=== PATIENT | male | born 1990 | race Caucasian/White ===

== ENCOUNTER 2017-07-21 11:32 | Inpatient (IN) | payer OTHER, MEDICARE, MEDICAID ==
[~2017-07-21] VITALS: Ht 182.9 cm; Wt 70.3 kg
[~2017-07-21 11:32] MED LIST: OLAN7.5T2 PO
[2017-07-21 12:04] LABS: BASOPHILS % (AUTO) 0.7 % (0.0-2.0); EOSINOPHILS % (AUTO) 0.9 % (1.0-6.0); HEMATOCRIT 39.7 % (41-53); HEMOGLOBIN 13.9 g/dL (13.5-17.5); LYMPHOCYTES # (AUTO) 1.5 K/uL (1.0-4.8); MEAN CORPUSCULAR HEMOGLOBIN 32.7 pg (26.0-34.0); MEAN CORPUSCULAR HGB CONC 34.9 G/dL (31.0-37.0); MEAN CORPUSCULAR VOLUME 94 fL (80-100); MONOCYTES # (AUTO) 0.9 K/uL (0.1-1.0); MONOCYTES % (AUTO) 10.5 % (2.0-9.0); NEUTROPHILS # (AUTO) 5.8 K/uL (1.8-7.7); NEUTROPHILS % (AUTO) 69.9 % (40.0-70.0); PLATELET COUNT (AUTO) 169 K/uL (150-450); RED BLOOD CELL COUNT(AUTO) 4.24 MIL/uL (4.50-5.90); RED CELL DISTRIBUTION WIDTH 13.5 % (11.5-14.5)
[2017-07-21 12:16] LABS: ANION GAP 9 mmol/L (8-16); CALCIUM, TOTAL 8.6 mg/dL (8.8-10.5); CARBON DIOXIDE 28 mmol/L (22-29); CHLORIDE 103 mmol/L (98-107); CREATININE 1.08 mg/dL (0.60-1.30); GLOMERULAR FILTR. RATE CALC > 60 mL/min (>60); GLUCOSE,RANDOM 112 mg/dL (70-110); POTASSIUM 3.4 mmol/L (3.5-5.1); SODIUM SERUM 140 mmol/L (136-145); UREA NITROGEN, BLOOD 19 mg/dL (7-18)
[2017-07-21 12:24] LABS: ALANINE AMINOTRANSFERASE 33 U/L (12-78); ALBUMIN 3.8 g/dL (3.4-5.0); ALKALINE PHOSPHATASE 67 U/L (46-116); ASPARTATE AMINOTRANSFERASE 30 U/L (15-37); TOTAL PROTEIN, SERUM 7.1 g/dL (6.4-8.2)
[2017-07-21] MEDS ORDERED: HALOPERIDOL 5 MG TABLET PO ONE (13:00)
[2017-07-21 23:43] LABS: AMPHET/METH SCREEN,URINE NEGATIVE (NEGATIVE); BARBITURATE SCREEN, URINE NEGATIVE (NEGATIVE); BENZODIAZEPINES SCREEN,URINE NEGATIVE (NEGATIVE); CANNABINOID SCREEN,URINE NEGATIVE (NEGATIVE); COCAINE SCREEN,URINE NEGATIVE (NEGATIVE); METHADONE SCREEN, URINE NEGATIVE (NEGATIVE); OPIATE SCREEN,URINE NEGATIVE (NEGATIVE)
[2017-07-21 23:45] LABS: PHENCYCLIDINE SCREEN,URINE NEGATIVE (NEGATIVE)
[2017-07-22] MEDS ORDERED: LORazepam 2 MG TABLET PO PRN (02:15)
[2017-07-22] MEDS ORDERED: ZOLPIDEM TARTRATE 10 MG TABLET PO PRN (02:15)
[2017-07-22] MEDS ORDERED: HALOPERIDOL 5 MG TABLET PO PRN (02:15)
[2017-07-22 03:13] LABS: APPEARANCE,URINE HAZY (CLEAR); BILIRUBIN,URINE NEGATIVE (NEGATIVE); GLUCOSE, URINE (UA) NEGATIVE (NEGATIVE); KETONES,URINE 40 mg/dL (NEGATIVE); LEUKOCYTE ESTERASE ,URINE NEGATIVE (NEGATIVE); NITRATE,URINE NEGATIVE (NEGATIVE); OCCULT BLOOD,URINE NEGATIVE (NEGATIVE); PROTEIN,URINE NEGATIVE (NEGATIVE); UROBILINOGEN,URINE 0.2 mg/dL (<=1.0)
[2017-07-23 00:05] VITALS: BP 124/68
[2017-07-23 08:12] VITALS: BP 104/66
[2017-07-23] MEDS ORDERED: ACETAMINOPHEN 325 MG TABLET PO PRN (16:15)
[2017-07-23] MEDS ORDERED: IBUPROFEN 400 MG TABLET PO PRN (16:15)
[2017-07-23 16:30] VITALS: BP 109/68
[2017-07-23] MEDS: OLANZapine 10 MG TABLET PO SCH (17:41)
[2017-07-23] MEDS ORDERED: POTASSIUM CHLORIDE 20 MEQ ER TABLET PO ONE (23:30)
[2017-07-24 06:44] VITALS: BP 117/78
[2017-07-24 08:04] VITALS: BP 117/76
[2017-07-24] MEDS: OLANZapine 10 MG TABLET PO SCH ×2 (09:10→16:09)
[2017-07-24 09:52] LABS: HEMOGLOBIN A1C 5.8 % (4.5-6.2)
[2017-07-24] MEDS: BENZTROPINE MESYLATE 2 MG TABLET PO SCH ×2 (10:13→16:09)
[2017-07-24 10:38] LABS: THYROID STIMULATING HORMONE 2.65 uIU/mL (0.36-3.74)
[2017-07-24] MEDS ORDERED: BENZ2TAB10 PO (15:43)
[2017-07-24] MEDS ORDERED: OLAN10TA3 PO (15:43)
== END 2017-07-24 16:50 | disposition short-term general hospital (02) | DRG 885 ==
LOC: EMS 11:39 → B3A 07-22 21:54
PROVIDERS: ADMIT Psychiatry & Neurology Psychiatry; ATTEND Psychiatry & Neurology Psychiatry
DX: F20.0 Paranoid schizophrenia (principal); Z59.0 Homelessness; E87.6 Hypokalemia; R00.0 Tachycardia, unspecified; R73.9 Hyperglycemia, unspecified; Z91.19 Patient's noncompliance with other medical treatment and regimen
CPT/HCPCS: 83036; 84443; 99285; G0480